=== PATIENT | female | born 1935 | race African-American/Black ===

== ENCOUNTER 2021-07-25 12:18 | Inpatient (IN) | payer MEDICARE, MEDICAID ==
[2021-07-25] MEDS ORDERED: Acetaminophen 650 MG Suppository PR PRN (15:38)
[2021-07-25] MEDS ORDERED: Dextrose 50% Abboject 50 ML SYRINGE SLOW IVP PRN (15:38)
[2021-07-25] MEDS ORDERED: Dextrose 5% in Water 1,000 ML IV PRN (15:38)
[2021-07-25] MEDS: Lactated Ringer's 1,000 ML IV SCH (16:59)
[2021-07-25] MEDS: Potassium Chloride 20 MEQ in Premix Bag 1 BAG IVPB SCH ×2 (17:00→21:20)
[2021-07-25] MEDS ORDERED: Famotidine/PF 20 mg/2ml Vial SLOW IVP SCH (21:00)
[2021-07-25] MEDS: Heparin 5,000 UNITS/ML VIAL SC SCH (21:20)
[2021-07-26 04:12] LABS: #Lymphocytes 1.4 thou/uL (1.20-3.40); #Monocytes 0.3 thou/uL (0.11-0.59); %Basophils 0.4 % (0.0-1.0); %Eosinophils 0.1 % (0.0-10.0); %Lymphocytes 37.4 % (21.0-51.0); %Monocytes 7.7 % (0.0-10.0); %Neutrophils 54.3 % (42.0-75.0); Hemoglobin 11.8 g/dL (12.0-16.0); Mean Corpuscular HGB CONC 32.9 g/dL (32.0-36.0); Mean Corpuscular Hemoglobin 29.3 pg (27.0-31.0); Mean Corpuscular Volume 89.1 fL (78.0-98.0); Mean Platelet Volume 10.3 fL (7.4-10.4); Platelet Count 129 thou/uL (130-400); RBC Distribution Width 12.4 % (11.5-14.5); Red Blood Cell (RBC) Count 4.03 mill/uL (4.20-5.40); White Blood Cell (WBC) Count 3.6 thou/uL (4.8-10.8)
[2021-07-26 04:32] LABS: ALT (SGPT) 14 U/L (8-55); AST (SGOT) 20 U/L (5-34); Albumin 3.1 g/dL (3.4-4.8); Alkaline Phosphatase 92 U/L (40-110); Anion Gap 12 mmol/L (10-20); BUN (Urea Nitrogen) 28 mg/dL (9.8-20.1); Bilirubin, Total 0.8 mg/dL (0.2-1.2); Calc. Creatinine Clearance 35 mL/min (70-130); Calcium 9.1 mg/dL (7.8-10.44); Carbon Dioxide 27 mmol/L (23-31); Chloride 108 mmol/L (98-107); Globulin 2.7 g/dL (2.4-3.5); Glucose 84 mg/dL (83-110); Potassium 3.8 mmol/L (3.5-5.1); Protein, Total 5.8 g/dL (5.8-8.1); Sodium 143 mmol/L (136-145)
[2021-07-26] MEDS: Famotidine/PF 20 mg/2ml Vial SLOW IVP SCH (09:35)
[2021-07-26] MEDS: Heparin 5,000 UNITS/ML VIAL SC SCH ×3 (09:35→21:34)
[2021-07-26 11:10] VITALS: BMI 26.9
[2021-07-26] MEDS ORDERED: NIFEdipine XL 90 MG TAB PO SCH (13:00)
[2021-07-26] MEDS ORDERED: risperiDONE 1 MG TAB PO SCH (13:00)
[2021-07-26] MEDS ORDERED: Losartan 25 MG TAB PO SCH (13:00)
[2021-07-26] MEDS: Lactated Ringer's 1,000 ML IV SCH (13:26)
[2021-07-26] MEDS: Vancomycin HCl 25 MG/ML Oral PO SCH ×2 (13:29→18:45)
[2021-07-26] MEDS: Donepezil HCl 10 MG TAB PO SCH (21:33)
[2021-07-26] MEDS: Trospium 20 MG TAB PO SCH (21:34)
[2021-07-26] MEDS: Melatonin 3 MG TAB PO SCH (21:34)
[2021-07-27] MEDS ORDERED: Lorazepam 2 MG/ML VIAL SLOW IVP SCH (00:15)
[2021-07-27 04:58] LABS: Free T4 (Free Thyroxine) 0.82 ng/dL (0.70-1.48); Thyroid Stimulating Hormone 5.5262 uIU/mL (0.35-4.94)
[2021-07-27] MEDS: Vancomycin HCl 25 MG/ML Oral PO SCH ×6 (05:56→23:45)
[2021-07-27] MEDS: Levothyroxine Sodium 50 MCG TAB PO SCH ×2 (05:57→11:02)
[2021-07-27 06:13] LABS: #Basophils 0.1 thou/uL (0.0-0.2); #Lymphocytes 1.9 thou/uL (1.20-3.40); #Monocytes 0.4 thou/uL (0.11-0.59); #Neutrophils 2.1 thou/uL (1.40-6.50); %Basophils 1.3 % (0.0-1.0); %Eosinophils 0.1 % (0.0-10.0); %Lymphocytes 43.1 % (21.0-51.0); %Monocytes 9.5 % (0.0-10.0); %Neutrophils 45.9 % (42.0-75.0); Hemoglobin 12.3 g/dL (12.0-16.0); Mean Corpuscular HGB CONC 31.6 g/dL (32.0-36.0); Mean Corpuscular Volume 88.8 fL (78.0-98.0); Platelet Count 140 thou/uL (130-400); RBC Distribution Width 12.5 % (11.5-14.5); White Blood Cell (WBC) Count 4.5 thou/uL (4.8-10.8)
[2021-07-27 06:36] LABS: Albumin 3.3 g/dL (3.4-4.8)
[2021-07-27 06:37] LABS: Chloride 104 mmol/L (98-107)
[2021-07-27 06:38] LABS: Calcium 9.3 mg/dL (7.8-10.44); Potassium 3.1 mmol/L (3.5-5.1); Sodium 143 mmol/L (136-145)
[2021-07-27 06:39] LABS: Glucose 71 mg/dL (83-110); Protein, Total 6.3 g/dL (5.8-8.1)
[2021-07-27 06:40] LABS: Carbon Dioxide 27 mmol/L (23-31)
[2021-07-27 06:41] LABS: Bilirubin, Total 1.1 mg/dL (0.2-1.2)
[2021-07-27 06:42] LABS: Alkaline Phosphatase 97 U/L (40-110); Calc. Creatinine Clearance 45 mL/min (70-130)
[2021-07-27 06:43] LABS: BUN (Urea Nitrogen) 19 mg/dL (9.8-20.1)
[2021-07-27 06:44] LABS: AST (SGOT) 23 U/L (5-34)
[2021-07-27 06:45] LABS: ALT (SGPT) 14 U/L (8-55)
[2021-07-27 07:20] LABS: Anion Gap 15 mmol/L (10-20)
[2021-07-27] MEDS: Heparin 5,000 UNITS/ML VIAL SC SCH ×3 (09:08→20:39)
[2021-07-27] MEDS: Famotidine/PF 20 mg/2ml Vial SLOW IVP SCH (09:08)
[2021-07-27] MEDS: Potassium Chloride 20 MEQ in Premix Bag 1 BAG IVPB SCH ×2 (09:08→11:02)
[2021-07-27] MEDS ORDERED: Gentamicin Sulfate 120 MG in Premix Bag 1 BAG IVPB SCH (10:00)
[2021-07-27] MEDS: Lactated Ringer's 1,000 ML IV SCH (11:01)
[2021-07-27] MEDS: NIFEdipine XL 90 MG TAB PO SCH (11:02)
[2021-07-27] MEDS: risperiDONE 1 MG TAB PO SCH (11:03)
[2021-07-27] MEDS: Losartan 25 MG TAB PO SCH (11:03)
[2021-07-27] MEDS: Trospium 20 MG TAB PO SCH (20:39)
[2021-07-27] MEDS: Donepezil HCl 10 MG TAB PO SCH (20:39)
[2021-07-27] MEDS: Melatonin 3 MG TAB PO SCH (20:39)
[2021-07-28 04:08] LABS: #Monocytes 0.5 thou/uL (0.11-0.59); #Neutrophils 2.4 thou/uL (1.40-6.50); %Basophils 0.3 % (0.0-1.0); %Eosinophils 0.1 % (0.0-10.0); %Lymphocytes 40.5 % (21.0-51.0); %Monocytes 10.4 % (0.0-10.0); %Neutrophils 48.7 % (42.0-75.0); Hemoglobin 13.1 g/dL (12.0-16.0); Mean Corpuscular HGB CONC 32.2 g/dL (32.0-36.0); Mean Corpuscular Hemoglobin 28.6 pg (27.0-31.0); Mean Platelet Volume 10.5 fL (7.4-10.4); Platelet Count 139 thou/uL (130-400); RBC Distribution Width 12.5 % (11.5-14.5); Red Blood Cell (RBC) Count 4.57 mill/uL (4.20-5.40); White Blood Cell (WBC) Count 4.9 thou/uL (4.8-10.8)
[2021-07-28 04:13] LABS: ALT (SGPT) 13 U/L (8-55); AST (SGOT) 23 U/L (5-34); Albumin 3.4 g/dL (3.4-4.8); Alkaline Phosphatase 104 U/L (40-110); Anion Gap 14 mmol/L (10-20); BUN (Urea Nitrogen) 14 mg/dL (9.8-20.1); Bilirubin, Total 1.1 mg/dL (0.2-1.2); Calc. Creatinine Clearance 47 mL/min (70-130); Carbon Dioxide 28 mmol/L (23-31); Chloride 102 mmol/L (98-107); Globulin 3.2 g/dL (2.4-3.5); Glucose 138 mg/dL (83-110); Potassium 3.7 mmol/L (3.5-5.1); Protein, Total 6.6 g/dL (5.8-8.1); Sodium 140 mmol/L (136-145)
[2021-07-28] MEDS: Lactated Ringer's 1,000 ML IV SCH (05:06)
[2021-07-28] MEDS: Levothyroxine Sodium 50 MCG TAB PO SCH (05:06)
[2021-07-28] MEDS: Vancomycin HCl 25 MG/ML Oral PO SCH ×4 (05:06→23:38)
[2021-07-28] MEDS: Losartan 25 MG TAB PO SCH (07:52)
[2021-07-28] MEDS: risperiDONE 1 MG TAB PO SCH (07:52)
[2021-07-28] MEDS: NIFEdipine XL 90 MG TAB PO SCH (07:52)
[2021-07-28] MEDS: Heparin 5,000 UNITS/ML VIAL SC SCH ×3 (07:53→21:04)
[2021-07-28] MEDS: Famotidine/PF 20 mg/2ml Vial SLOW IVP SCH (07:53)
[2021-07-28] MEDS: Donepezil HCl 10 MG TAB PO SCH (21:03)
[2021-07-28] MEDS: Melatonin 3 MG TAB PO SCH (21:03)
[2021-07-28] MEDS: Trospium 20 MG TAB PO SCH (21:03)
[2021-07-29] MEDS: Vancomycin HCl 25 MG/ML Oral PO SCH ×4 (06:00→23:58)
[2021-07-29] MEDS: Levothyroxine Sodium 50 MCG TAB PO SCH (06:00)
[2021-07-29] MEDS: Famotidine/PF 20 mg/2ml Vial SLOW IVP SCH (09:18)
[2021-07-29] MEDS: Losartan 25 MG TAB PO SCH (09:19)
[2021-07-29] MEDS: Heparin 5,000 UNITS/ML VIAL SC SCH ×3 (09:19→21:51)
[2021-07-29] MEDS: NIFEdipine XL 90 MG TAB PO SCH (10:57)
[2021-07-29] MEDS: risperiDONE 1 MG TAB PO SCH (10:57)
[2021-07-29 12:12] LABS: #Lymphocytes 2.2 thou/uL (1.20-3.40); #Monocytes 0.6 thou/uL (0.11-0.59); #Neutrophils 2.8 thou/uL (1.40-6.50); %Basophils 0.1 % (0.0-1.0); %Eosinophils 0.1 % (0.0-10.0); %Monocytes 10.5 % (0.0-10.0); %Neutrophils 50.4 % (42.0-75.0); Hemoglobin 12.1 g/dL (12.0-16.0); Mean Corpuscular HGB CONC 32.6 g/dL (32.0-36.0); Mean Corpuscular Hemoglobin 28.9 pg (27.0-31.0); Mean Corpuscular Volume 88.7 fL (78.0-98.0); Mean Platelet Volume 10.3 fL (7.4-10.4); Platelet Count 136 thou/uL (130-400); RBC Distribution Width 12.9 % (11.5-14.5); Red Blood Cell (RBC) Count 4.19 mill/uL (4.20-5.40); White Blood Cell (WBC) Count 5.6 thou/uL (4.8-10.8)
[2021-07-29] MEDS: Acetaminophen 325 MG TAB PO PRN ×2 (12:16→21:50)
[2021-07-29 12:46] LABS: ALT (SGPT) 11 U/L (8-55); AST (SGOT) 21 U/L (5-34); Albumin 2.9 g/dL (3.4-4.8); Alkaline Phosphatase 86 U/L (40-110); Anion Gap 12 mmol/L (10-20); BUN (Urea Nitrogen) 25 mg/dL (9.8-20.1); Bilirubin, Total 0.8 mg/dL (0.2-1.2); Calc. Creatinine Clearance 30 mL/min (70-130); Calcium 9.1 mg/dL (7.8-10.44); Carbon Dioxide 28 mmol/L (23-31); Chloride 102 mmol/L (98-107); Globulin 2.8 g/dL (2.4-3.5); Glucose 114 mg/dL (83-110); Potassium 4.2 mmol/L (3.5-5.1); Protein, Total 5.7 g/dL (5.8-8.1); Sodium 138 mmol/L (136-145)
[2021-07-29] MEDS ORDERED: Metoprolol Tartrate 25 MG TAB PO SCH (13:30)
[2021-07-29] MEDS: Lactated Ringer's 1,000 ML IV SCH ×2 (20:00)
[2021-07-29] MEDS: Trospium 20 MG TAB PO SCH (21:49)
[2021-07-29] MEDS: Melatonin 3 MG TAB PO SCH (21:49)
[2021-07-29] MEDS: Metoprolol Tartrate 25 MG TAB PO SCH (21:49)
[2021-07-29] MEDS: Donepezil HCl 10 MG TAB PO SCH (21:49)
[2021-07-30] MEDS: Vancomycin HCl 25 MG/ML Oral PO SCH ×4 (05:34→23:55)
[2021-07-30] MEDS: Levothyroxine Sodium 50 MCG TAB PO SCH (05:34)
[2021-07-30 08:04] LABS: #Lymphocytes 1.8 thou/uL (1.20-3.40); #Monocytes 0.6 thou/uL (0.11-0.59); #Neutrophils 2.1 thou/uL (1.40-6.50); %Basophils 0.4 % (0.0-1.0); %Eosinophils 0.1 % (0.0-10.0); %Lymphocytes 40.2 % (21.0-51.0); %Neutrophils 46.3 % (42.0-75.0); Mean Corpuscular HGB CONC 30.6 g/dL (32.0-36.0); Mean Corpuscular Hemoglobin 27.3 pg (27.0-31.0); Mean Corpuscular Volume 89.3 fL (78.0-98.0); Platelet Count 137 thou/uL (130-400); RBC Distribution Width 12.7 % (11.5-14.5); Red Blood Cell (RBC) Count 4.03 mill/uL (4.20-5.40); White Blood Cell (WBC) Count 4.4 thou/uL (4.8-10.8)
[2021-07-30 08:30] LABS: ALT (SGPT) 15 U/L (8-55); AST (SGOT) 27 U/L (5-34); Albumin 2.8 g/dL (3.4-4.8); Alkaline Phosphatase 81 U/L (40-110); Anion Gap 12 mmol/L (10-20); BUN (Urea Nitrogen) 25 mg/dL (9.8-20.1); Bilirubin, Total 0.7 mg/dL (0.2-1.2); Calc. Creatinine Clearance 33 mL/min (70-130); Calcium 8.9 mg/dL (7.8-10.44); Carbon Dioxide 30 mmol/L (23-31); Chloride 102 mmol/L (98-107); Globulin 2.8 g/dL (2.4-3.5); Glucose 163 mg/dL (83-110); Potassium 4.1 mmol/L (3.5-5.1); Protein, Total 5.6 g/dL (5.8-8.1); Sodium 140 mmol/L (136-145)
[2021-07-30] MEDS: Heparin 5,000 UNITS/ML VIAL SC SCH ×3 (09:14→20:10)
[2021-07-30] MEDS: risperiDONE 1 MG TAB PO SCH (09:14)
[2021-07-30] MEDS: Metoprolol Tartrate 25 MG TAB PO SCH ×2 (09:15→20:10)
[2021-07-30] MEDS: Famotidine/PF 20 mg/2ml Vial SLOW IVP SCH (09:15)
[2021-07-30] MEDS: Losartan 25 MG TAB PO SCH (09:15)
[2021-07-30] MEDS: NIFEdipine XL 90 MG TAB PO SCH (09:16)
[2021-07-30] MEDS: Erythromycin Base 0.5% Oint 1 GM TUBE L EYE SCH ×2 (15:39→20:11)
[2021-07-30] MEDS: Lactated Ringer's 1,000 ML IV SCH (15:41)
[2021-07-30] MEDS: Melatonin 3 MG TAB PO SCH (20:10)
[2021-07-30] MEDS: Donepezil HCl 10 MG TAB PO SCH (20:10)
[2021-07-30] MEDS: Trospium 20 MG TAB PO SCH (20:10)
[2021-07-31] MEDS: Vancomycin HCl 25 MG/ML Oral PO SCH ×3 (05:43→17:33)
[2021-07-31] MEDS: Levothyroxine Sodium 50 MCG TAB PO SCH (05:43)
[2021-07-31 07:52] LABS: ALT (SGPT) 21 U/L (8-55); AST (SGOT) 34 U/L (5-34); Albumin 2.9 g/dL (3.4-4.8); Alkaline Phosphatase 86 U/L (40-110); Anion Gap 10 mmol/L (10-20); BUN (Urea Nitrogen) 24 mg/dL (9.8-20.1); Bilirubin, Total 0.6 mg/dL (0.2-1.2); Calc. Creatinine Clearance 39 mL/min (70-130); Calcium 8.9 mg/dL (7.8-10.44); Carbon Dioxide 31 mmol/L (23-31); Chloride 103 mmol/L (98-107); Globulin 2.6 g/dL (2.4-3.5); Glucose 128 mg/dL (83-110); Potassium 4.4 mmol/L (3.5-5.1); Protein, Total 5.5 g/dL (5.8-8.1); Sodium 140 mmol/L (136-145)
[2021-07-31 08:17] LABS: #Lymphocytes 1.7 thou/uL (1.20-3.40); #Monocytes 0.5 thou/uL (0.11-0.59); #Neutrophils 1.9 thou/uL (1.40-6.50); %Basophils 0.8 % (0.0-1.0); %Lymphocytes 41.4 % (21.0-51.0); %Monocytes 11.2 % (0.0-10.0); %Neutrophils 46.6 % (42.0-75.0); Hemoglobin 11.4 g/dL (12.0-16.0); Mean Corpuscular HGB CONC 33.6 g/dL (32.0-36.0); Mean Corpuscular Hemoglobin 30.3 pg (27.0-31.0); Mean Corpuscular Volume 90.3 fL (78.0-98.0); Mean Platelet Volume 10.9 fL (7.4-10.4); Platelet Count 117 thou/uL (130-400); Platelet Morphology Comment Appears Decreased; RBC Distribution Width 12.8 % (11.5-14.5); RBC Morphology Normal; Red Blood Cell (RBC) Count 3.76 mill/uL (4.20-5.40); White Blood Cell (WBC) Count 4.1 thou/uL (4.8-10.8)
[2021-07-31] MEDS: Bisacodyl 5 MG TAB PO SCH (08:43)
[2021-07-31] MEDS: Famotidine/PF 20 mg/2ml Vial SLOW IVP SCH (08:43)
[2021-07-31] MEDS: Heparin 5,000 UNITS/ML VIAL SC SCH ×3 (08:43→23:21)
[2021-07-31] MEDS: NIFEdipine XL 90 MG TAB PO SCH (08:44)
[2021-07-31] MEDS: Losartan 25 MG TAB PO SCH (08:44)
[2021-07-31] MEDS: Metoprolol Tartrate 25 MG TAB PO SCH ×2 (08:44→19:35)
[2021-07-31] MEDS: risperiDONE 1 MG TAB PO SCH (08:44)
[2021-07-31] MEDS: Erythromycin Base 0.5% Oint 1 GM TUBE L EYE SCH ×3 (08:45→19:35)
[2021-07-31] MEDS: Lactated Ringer's 1,000 ML IV SCH (12:22)
[2021-07-31] MEDS: Donepezil HCl 10 MG TAB PO SCH (19:35)
[2021-07-31] MEDS: Trospium 20 MG TAB PO SCH (19:35)
[2021-07-31] MEDS: Melatonin 3 MG TAB PO SCH (23:21)
[2021-08-01] MEDS: Vancomycin HCl 25 MG/ML Oral PO SCH ×5 (00:29→23:42)
[2021-08-01] MEDS: Levothyroxine Sodium 50 MCG TAB PO SCH (05:14)
[2021-08-01] MEDS: Metoprolol Tartrate 25 MG TAB PO SCH ×2 (05:14→21:00)
[2021-08-01] MEDS: Lactated Ringer's 1,000 ML IV SCH (05:28)
[2021-08-01 07:54] LABS: #Lymphocytes 2.1 thou/uL (1.20-3.40); #Monocytes 0.5 thou/uL (0.11-0.59); #Neutrophils 1.8 thou/uL (1.40-6.50); %Basophils 0.4 % (0.0-1.0); %Eosinophils 0.1 % (0.0-10.0); %Lymphocytes 47.8 % (21.0-51.0); %Monocytes 10.9 % (0.0-10.0); %Neutrophils 40.8 % (42.0-75.0); ALT (SGPT) 25 U/L (8-55); AST (SGOT) 42 U/L (5-34); Albumin 2.8 g/dL (3.4-4.8); Alkaline Phosphatase 80 U/L (40-110); Anion Gap 10 mmol/L (10-20); BUN (Urea Nitrogen) 23 mg/dL (9.8-20.1); Bilirubin, Total 0.6 mg/dL (0.2-1.2); Calc. Creatinine Clearance 45 mL/min (70-130); Calcium 8.9 mg/dL (7.8-10.44); Carbon Dioxide 31 mmol/L (23-31); Chloride 103 mmol/L (98-107); Globulin 2.6 g/dL (2.4-3.5); Glucose 84 mg/dL (83-110); Hemoglobin 10.7 g/dL (12.0-16.0); Mean Corpuscular HGB CONC 31.1 g/dL (32.0-36.0); Mean Corpuscular Hemoglobin 28.1 pg (27.0-31.0); Mean Corpuscular Volume 90.3 fL (78.0-98.0); Mean Platelet Volume 10.3 fL (7.4-10.4); Platelet Count 125 thou/uL (130-400); Potassium 4.4 mmol/L (3.5-5.1); Protein, Total 5.4 g/dL (5.8-8.1); RBC Distribution Width 12.5 % (11.5-14.5); Red Blood Cell (RBC) Count 3.82 mill/uL (4.20-5.40); Sodium 140 mmol/L (136-145); White Blood Cell (WBC) Count 4.4 thou/uL (4.8-10.8)
[2021-08-01] MEDS ORDERED: hydrALAZINE 20 MG/ML VIAL SLOW IVP SCH (08:15)
[2021-08-01] MEDS: Erythromycin Base 0.5% Oint 1 GM TUBE L EYE SCH ×3 (08:54→21:35)
[2021-08-01] MEDS: Bisacodyl 5 MG TAB PO SCH (08:56)
[2021-08-01] MEDS: NIFEdipine XL 90 MG TAB PO SCH (08:57)
[2021-08-01] MEDS: Losartan 25 MG TAB PO SCH (08:57)
[2021-08-01] MEDS: risperiDONE 1 MG TAB PO SCH (08:57)
[2021-08-01] MEDS: Famotidine/PF 20 mg/2ml Vial SLOW IVP SCH (09:00)
[2021-08-01] MEDS ORDERED: Levofloxacin 500 mg/D5W 100 ml Premix Bag ONE (11:08)
[2021-08-01] MEDS ORDERED: Lidocaine 1% PF 5 ML VIAL ONE (11:16)
[2021-08-01] MEDS ORDERED: PROPOFOL 200 MG/20 ML VIAL ONE (11:16)
[2021-08-01] MEDS ORDERED: Ondansetron HCl/PF 4 MG/2 ML Vial IVP PRN (11:38)
[2021-08-01] MEDS ORDERED: Promethazine HCl 25 MG/ML VIAL IVPB PRN (11:38)
[2021-08-01] MEDS ORDERED: Promethazine HCl 25 MG/ML VIAL IM PRN (11:38)
[2021-08-01 13:36] LABS: SARS-CoV-2 PCR by NAA Not Detected (NotDetected)
[2021-08-01] MEDS: Heparin 5,000 UNITS/ML VIAL SC SCH ×2 (15:36→21:36)
[2021-08-01] MEDS: Acetaminophen 325 MG TAB PO PRN (16:11)
[2021-08-01] MEDS: Trospium 20 MG TAB PO SCH (20:59)
[2021-08-01] MEDS: Donepezil HCl 10 MG TAB PO SCH (20:59)
[2021-08-01] MEDS: Melatonin 3 MG TAB PO SCH (22:16)
[2021-08-02] MEDS: Lactated Ringer's 1,000 ML IV SCH (03:43)
[2021-08-02] MEDS: Acetaminophen 325 MG TAB PO PRN ×3 (03:53→17:18)
[2021-08-02] MEDS: Levothyroxine Sodium 50 MCG TAB PO SCH (05:18)
[2021-08-02] MEDS: Vancomycin HCl 25 MG/ML Oral PO SCH ×3 (05:18→17:18)
[2021-08-02] MEDS: Losartan 25 MG TAB PO SCH (08:30)
[2021-08-02] MEDS: Erythromycin Base 0.5% Oint 1 GM TUBE L EYE SCH (08:30)
[2021-08-02] MEDS: Bisacodyl 5 MG TAB PO SCH (08:30)
[2021-08-02] MEDS: Famotidine/PF 20 mg/2ml Vial SLOW IVP SCH (08:31)
[2021-08-02] MEDS: Metoprolol Tartrate 25 MG TAB PO SCH (08:31)
[2021-08-02] MEDS: NIFEdipine XL 90 MG TAB PO SCH (08:31)
[2021-08-02] MEDS: risperiDONE 1 MG TAB PO SCH (08:32)
[2021-08-02] MEDS ORDERED: Enoxaparin Sodium 40 MG/0.4 ML SYRINGE SC SCH (09:00)
[2021-08-02 10:05] LABS: #Lymphocytes 1.7 thou/uL (1.20-3.40); #Monocytes 0.6 thou/uL (0.11-0.59); #Neutrophils 7.7 thou/uL (1.40-6.50); %Basophils 0.4 % (0.0-1.0); %Eosinophils 0.2 % (0.0-10.0); %Lymphocytes 16.6 % (21.0-51.0); %Monocytes 5.8 % (0.0-10.0); %Neutrophils 77.1 % (42.0-75.0); Hemoglobin 11.6 g/dL (12.0-16.0); Mean Corpuscular Hemoglobin 28.9 pg (27.0-31.0); Mean Corpuscular Volume 90.3 fL (78.0-98.0); Mean Platelet Volume 9.8 fL (7.4-10.4); Platelet Count 123 thou/uL (130-400); RBC Distribution Width 12.7 % (11.5-14.5); Red Blood Cell (RBC) Count 4.02 mill/uL (4.20-5.40)
[2021-08-02 10:29] LABS: ALT (SGPT) 66 U/L (8-55); AST (SGOT) 107 U/L (5-34); Albumin 2.8 g/dL (3.4-4.8); Alkaline Phosphatase 93 U/L (40-110); Anion Gap 13 mmol/L (10-20); BUN (Urea Nitrogen) 24 mg/dL (9.8-20.1); Bilirubin, Total 0.8 mg/dL (0.2-1.2); Calc. Creatinine Clearance 38 mL/min (70-130); Calcium 8.6 mg/dL (7.8-10.44); Carbon Dioxide 25 mmol/L (23-31); Chloride 102 mmol/L (98-107); Globulin 2.8 g/dL (2.4-3.5); Glucose 226 mg/dL (83-110); Potassium 4.5 mmol/L (3.5-5.1); Protein, Total 5.6 g/dL (5.8-8.1); Sodium 135 mmol/L (136-145)
[2021-08-02 19:31] VITALS: BP 132/62; TEMP 98.3
[2021-08-03] MEDS ORDERED: risperiDONE 1 MG TAB PER TUBE SCH (09:00)
== END 2021-08-02 19:26 | DRG 871 ==
LOC: 2NO 13:54 → IMCU/EMU 19:52 → 2NO 07-26 15:01 → T4-A 07-28 10:55
PROVIDERS: ADMIT Family Medicine; ATTEND Family Medicine
PROC: 0DH67UZ Insertion of Feeding Device into Stomach, Via Natural or Artificial Opening (ICD-10-PCS; 2021-07-25)
PROC: 8E0ZXY6 Isolation (ICD-10-PCS; 2021-07-25)
PROC: 0DH67UZ Insertion of Feeding Device into Stomach, Via Natural or Artificial Opening (ICD-10-PCS; 2021-07-27)
PROC: 0DH63UZ Insertion of Feeding Device into Stomach, Percutaneous Approach (ICD-10-PCS; principal; 2021-08-01)
DX: A41.89 Other specified sepsis (principal); Z20.822 Contact with and (suspected) exposure to COVID-19; G93.41 Metabolic encephalopathy; E44.0 Moderate protein-calorie malnutrition; A04.72 Enterocolitis due to Clostridium difficile, not specified as recurrent; N39.0 Urinary tract infection, site not specified; E46 Unspecified protein-calorie malnutrition; R65.20 Severe sepsis without septic shock; N18.30 Chronic kidney disease, stage 3 unspecified; G30.9 Alzheimer's disease, unspecified; F02.80 Dementia in other diseases classified elsewhere, unspecified severity, without behavioral disturbance, psychotic disturbance, mood disturbance, and anxiety; I12.9 Hypertensive chronic kidney disease with stage 1 through stage 4 chronic kidney disease, or unspecified chronic kidney disease; E03.9 Hypothyroidism, unspecified; E78.5 Hyperlipidemia, unspecified; K21.9 Gastro-esophageal reflux disease without esophagitis; R00.1 Bradycardia, unspecified; I49.3 Ventricular premature depolarization; I44.0 Atrioventricular block, first degree; T44.7X5A Adverse effect of beta-adrenoreceptor antagonists, initial encounter; B96.89 Other specified bacterial agents as the cause of diseases classified elsewhere; K44.9 Diaphragmatic hernia without obstruction or gangrene; R13.12 Dysphagia, oropharyngeal phase; E87.6 Hypokalemia; I69.391 Dysphagia following cerebral infarction; Z79.890 Hormone replacement therapy; Z78.1 Physical restraint status; Z98.51 Tubal ligation status; Z88.0 Allergy status to penicillin; Z68.26 Body mass index [BMI] 26.0-26.9, adult; Z79.899 Other long term (current) drug therapy; Z87.891 Personal history of nicotine dependence
CPT/HCPCS: 36415; 36416; 74018; 80053; 84439; 84443; 84479; 84481; 85025; 87040; 87077; 87086; 87186; 87324; 87449; 87493; J0360; J1580; J1644; J1650; J1956; J2060; J2704; J3480; J7120; S0028; U0003; U0005